=== PATIENT | female | born 1980 | race American Indian/Alaskan Native ===

== ENCOUNTER 2019-05-14 12:25 | Outpatient (CLI) | payer BC ==
--- NOTE | 2019-05-14 14:50 | Ultrasound Report ---
ULTRASOUND PELVIS COMPLETE ULTRASOUND TRANSVAGINAL INDICATION / CLINICAL INFORMATION: N93.8 ABNORMAL UTERINE VAGINAL BLEEDING. TECHNIQUE: Transabdominal. Duplex Color Doppler used: Yes. COMPARISON: None available FINDINGS: UTERUS: The uterus is anteverted. The uterus measures 9.9 x 4.8 x 5.3 cm. There is suggestion of a pa rtially calcified fibroid in the anterior fundal region measuring up to 1.6 cm in diameter. There are multiple coalescent cysts in the cervix measuring up to 1.4 x 1.5 x 3.5 cm. These appear to represen t multiple nabothian cysts. ENDOMETRIUM: The endometrium is slightly heterogeneous and measures 1.3 cm in thickness on transvagin al imaging. RIGHT ADNEXA: No significant ovarian cyst or mass Normal color Doppler blood flow. 1.8 x 1.2 x 1.7 cm . LEFT ADNEXA: A 2.2 cm cyst with thin internal septation is identified. Normal color Doppler blood dimitri w. 2.8 x 1.8 x 2.9 cm URINARY BLADDER: Empty FREE FLUID: None. ADDITIONAL FINDINGS: None. IMPRESSION: Small anterior fundal uterine fibroid is suggested. The endometrium measures 1.3 cm. Multiple nabothian cysts in the cervix. Left ovarian cyst. Signer Name: Gaurav Mcgowan Jr, MD Signed: 05/14/2019 2:45 PM Workstation Name: [id number]
== END 2019-05-14 12:26 | disposition home or self-care (01) ==
LOC: US 12:25
PROVIDERS: ATTEND Obstetrics & Gynecology
DX: N88.8 Other specified noninflammatory disorders of cervix uteri (principal); D25.9 Leiomyoma of uterus, unspecified
CPT/HCPCS: 76830; 76856

== ENCOUNTER 2019-06-15 11:06 | Outpatient (CLI) | payer BC | END 2019-06-15 11:07 | disposition home or self-care (01) | LOC: LAB 11:06 | PROVIDERS: ATTEND Obstetrics & Gynecology | DX: R87.610 Atypical squamous cells of undetermined significance on cytologic smear of cervix (ASC-US) (principal) | CPT/HCPCS: 88305 ==

== ENCOUNTER 2019-09-24 10:43 | Outpatient (CLI) | payer BC | END 2019-09-24 10:44 | disposition home or self-care (01) | LOC: LAB 10:43 | PROVIDERS: ATTEND Obstetrics & Gynecology | DX: Z00.00 Encounter for general adult medical examination without abnormal findings (principal) | CPT/HCPCS: 87591 ==

== ENCOUNTER 2020-05-12 12:17 | Outpatient (CLI) | payer BC ==
[2020-05-12 14:49] LABS: Alanine Aminotransferase 17 units/L (7-56); Albumin 4.2 g/dL (3.9-5)
[2020-05-12 14:51] LABS: Bilirubin,Direct < 0.2 mg/dL (0-0.2)
== END 2020-05-12 12:18 | disposition home or self-care (01) ==
LOC: LAB 12:17
PROVIDERS: ATTEND Obstetrics & Gynecology
DX: Z01.411 Encounter for gynecological examination (general) (routine) with abnormal findings (principal)
CPT/HCPCS: 36415; 80076; 86592; 86689; 87529

== ENCOUNTER 2020-05-25 09:04 | Outpatient (CLI) | payer BC ==
--- NOTE | 2020-05-30 09:06 | Mammography Report ---
DIGITAL SCREENING MAMMOGRAM WITH CAD, 05/30/2020 CLINICAL INFORMATION / INDICATION: Routine screening mammography. TECHNIQUE: Digital bilateral 2D mammography was obtained in the craniocaudal and mediolateral obliqu e projections. This examination was interpreted with the benefit of Computer-Aided Detection analysis . COMPARISON: FINDINGS: Breast Density: There are scattered areas of fibroglandular density. No dominant mass, suspicious calcifications, or architectural distortion in either breast. Reduction mammoplasty changes are present bilaterally. IMPRESSION: No mammographic evidence of malignancy. Follow up recommendation: Routine yearly BI-RADS Category 2: Benign. A "normal" or negative report should not discourage follow up or biopsy of a clinically significant f inding. A written summary of these findings will be mailed to the patient. The patient will be entered into a mammography reporting system which will generate a reminder letter for the patient's next appointmen t at the appropriate interval. The [employer] recommends yearly mammograms starting at age 40 and continuing as l jerson as a woman is in good health. Breast MRI is recommended for women with an approximate 20-25% or greater lifetime risk of breast cancer, including women with a strong family history of breast or ova may cancer or who have been treated for Hodgkin's disease. Signer Name: Sarah Gómez MD Signed: 05/30/2020 9:02 AM Workstation Name: [email or web address]
== END 2020-05-25 09:05 | disposition home or self-care (01) ==
LOC: SPVWC 09:04
PROVIDERS: ATTEND Obstetrics & Gynecology
DX: Z12.31 Encounter for screening mammogram for malignant neoplasm of breast (principal)
CPT/HCPCS: 77067

== ENCOUNTER 2020-07-19 16:22 | Outpatient (CLI) | payer BC | END 2020-07-19 16:23 | disposition home or self-care (01) | LOC: LAB 16:22 | PROVIDERS: ATTEND Obstetrics & Gynecology | DX: R87.610 Atypical squamous cells of undetermined significance on cytologic smear of cervix (ASC-US) (principal) | CPT/HCPCS: 88305 ==